=== PATIENT | female | born 1995 | race Caucasian/White ===

== ENCOUNTER 2019-08-10 18:03 | Inpatient (IN) | payer BC, MEDICARE ==
[~2019-08-10] VITALS: Ht 165.1 cm; Wt 68.7 kg
[2019-08-10] MEDS ORDERED: LITH600 PO (18:11)
[2019-08-10] MEDS ORDERED: TRAZ-257 PO (18:11)
[2019-08-10] MEDS ORDERED: BUPR75 PO (18:11)
[2019-08-10] MEDS ORDERED: BUPR-93 PO (18:42)
[2019-08-10 22:24] LABS: BASOPHILS % (AUTO) 0.2 % (0.0-2.0); EOSINOPHILS % (AUTO) 2.6 % (1.0-6.0); HEMATOCRIT 41.3 % (36-46); HEMOGLOBIN 13.6 g/dL (12.0-16.0); LYMPHOCYTES # (AUTO) 2.6 K/uL (1.0-4.8); LYMPHOCYTES % (AUTO) 27.8 % (22.0-44.0); MEAN CORPUSCULAR HGB CONC 32.9 G/dL (31.0-37.0); MEAN CORPUSCULAR VOLUME 91 fL (80-100); MONOCYTES # (AUTO) 0.9 K/uL (0.1-1.0); MONOCYTES % (AUTO) 9.4 % (2.0-9.0); NEUTROPHILS # (AUTO) 5.6 K/uL (1.8-7.7); PLATELET COUNT (AUTO) 243 K/uL (150-450); RED BLOOD CELL COUNT(AUTO) 4.54 MIL/uL (4.00-5.20); RED CELL DISTRIBUTION WIDTH 12.8 % (11.5-14.5)
[2019-08-10] MEDS ORDERED: ZOLPIDEM TARTRATE 10 MG TABLET PO PRN (23:15)
[2019-08-10] MEDS ORDERED: QUEtiapine FUMARATE 100 MG TABLET PO PRN (23:15)
[2019-08-10 23:21] LABS: ANION GAP 6 mmol/L (8-16); CALCIUM, TOTAL 9.8 mg/dL (8.8-10.5); CARBON DIOXIDE 30 mmol/L (22-29); CHLORIDE 100 mmol/L (98-107); CREATININE 0.75 mg/dL (0.60-1.30); GLOMERULAR FILTR. RATE CALC > 60 mL/min (>60); GLUCOSE,RANDOM 74 mg/dL (70-110); POTASSIUM 3.7 mmol/L (3.5-5.1); SODIUM SERUM 136 mmol/L (136-145); UREA NITROGEN, BLOOD 9 mg/dL (7-18)
[2019-08-10 23:21] LABS: AMPHET/METH SCREEN,URINE NEGATIVE (NEGATIVE); BARBITURATE SCREEN, URINE NEGATIVE (NEGATIVE); BENZODIAZEPINES SCREEN,URINE POSITIVE (NEGATIVE); CANNABINOID SCREEN,URINE NEGATIVE (NEGATIVE); COCAINE SCREEN,URINE NEGATIVE (NEGATIVE); METHADONE SCREEN, URINE NEGATIVE (NEGATIVE); OPIATE SCREEN,URINE NEGATIVE (NEGATIVE)
[2019-08-10 23:22] LABS: PHENCYCLIDINE SCREEN,URINE NEGATIVE (NEGATIVE)
[2019-08-10 23:38] LABS: ALANINE AMINOTRANSFERASE 21 U/L (12-78); ALBUMIN 4.8 g/dL (3.4-5.0); ALKALINE PHOSPHATASE 51 U/L (46-116); ASPARTATE AMINOTRANSFERASE 12 U/L (15-37); BILIRUBIN,TOTAL 0.9 mg/dL (0.1-1.0); TOTAL PROTEIN, SERUM 8.5 g/dL (6.4-8.2)
[2019-08-11 00:13] LABS: HCG,QUANTITATIVE < 1 mIU/mL (0-6)
[2019-08-11 02:41] VITALS: BP 134/69
[2019-08-11] MEDS: LORazepam 2 MG TABLET PO PRN ×2 (03:00→17:30)
[2019-08-11 08:32] VITALS: BP 117/71
[2019-08-11 09:11] LABS: CHOL/HDL RATIO 3.2 (3.9-5.7)
[2019-08-11] MEDS ORDERED: MAGNESIUM HYDROXIDE SUSPENSION 30 ML UDCUP PO PRN (10:00)
[2019-08-11] MEDS ORDERED: TUBERCULIN, PURIFIED PROTEIN DERIVATIVE 5 TU/0.1 ML SYRINGE ID ONE (10:00)
[2019-08-11] MEDS ORDERED: LOPERAMIDE HCL 2 MG CAPSULE PO PRN (10:00)
[2019-08-11] MEDS ORDERED: MAG HYDROX/AL HYDROX/SIMETH ES 30 ML SUSPENSION UDCUP PO PRN (10:00)
[2019-08-11] MEDS ORDERED: LURASIDONE HCL 20 MG TABLET PO PRN (10:00)
[2019-08-11] MEDS ORDERED: PROMETHAZINE HCL 25 MG TABLET PO PRN (10:00)
[2019-08-11] MEDS ORDERED: ACETAMINOPHEN 325 MG TABLET PO PRN (10:00)
[2019-08-11] MEDS ORDERED: HydrOXYzine PAMOATE 50 MG CAPSULE PO PRN (10:00)
[2019-08-11] MEDS ORDERED: GuaiFENesin/D-METHORPHAN [SUGAR-FREE] 200-20MG/10 ML SYRUP UDCUP PO PRN (10:00)
[2019-08-11] MEDS ORDERED: LITHIUM CARBONATE 300 MG CAPSULE PO SCH (13:00)
[2019-08-11] MEDS: TRIHEXYPHENIDYL HCL 5 MG TABLET PO SCH (16:35)
[2019-08-11] MEDS: LURASIDONE HCL 40 MG TABLET PO SCH (16:36)
[2019-08-11] MEDS: DOXYCYCLINE HYCLATE 100 MG TABLET PO SCH (16:39)
[2019-08-11 16:43] VITALS: BP 129/79
[2019-08-11] MEDS ORDERED: LURASIDONE HCL 40 MG TABLET PO SCH (17:00)
[2019-08-11] MEDS ORDERED: BUPR-47 PO (17:54)
[2019-08-11] MEDS ORDERED: LURA40TA2 PO (17:54)
[2019-08-11] MEDS ORDERED: TRIH5TAB2 PO (17:54)
[2019-08-11] MEDS: THIAMINE 100 MG TABLET PO SCH (18:05)
[2019-08-12 06:00] VITALS: BP 123/76
[2019-08-12] MEDS: DOXYCYCLINE HYCLATE 100 MG TABLET PO SCH (06:51)
[2019-08-12] MEDS: THIAMINE 100 MG TABLET PO SCH (08:35)
[2019-08-12] MEDS: TRIHEXYPHENIDYL HCL 5 MG TABLET PO SCH ×2 (08:35→12:10)
[2019-08-12 08:38] VITALS: BP 132/73
[2019-08-12] MEDS ORDERED: DOXY-354 PO (08:55)
[2019-08-12] MEDS ORDERED: FOLIC ACID 1 MG TABLET PO SCH (09:00)
[2019-08-12] MEDS ORDERED: BuPROPion HCL XL 150 MG ER TABLET PO SCH (09:00)
[2019-08-12] MEDS ORDERED: MULTIVITAMINS WITH MINERALS, THERAPEUTIC TABLET PO SCH (09:00)
[2019-08-12 09:24] LABS: FREE T4 (FREE THYROXINE) 1.27 ng/dL (0.76-1.46); THYROID STIMULATING HORMONE 3.1 uIU/mL (0.36-3.74)
[2019-08-12] MEDS: LURASIDONE HCL 40 MG TABLET PO SCH (12:10)
== END 2019-08-12 12:19 | disposition home or self-care (01) | DRG 885 ==
LOC: EMS 18:04 → B3A 08-11 01:11
PROVIDERS: ADMIT Psychiatry & Neurology Psychiatry; ATTEND Psychiatry & Neurology Psychiatry
DX: F25.0 Schizoaffective disorder, bipolar type (principal); R45.851 Suicidal ideations; K50.90 Crohn's disease, unspecified, without complications; D64.9 Anemia, unspecified; Z79.899 Other long term (current) drug therapy; Z91.19 Patient's noncompliance with other medical treatment and regimen
CPT/HCPCS: 84439; 84443; 86592; G0480

== ENCOUNTER 2022-05-03 10:48 | Emergency (ER) | payer BC ==
[~2022-05-03] VITALS: Ht 165.1 cm; Wt 54.5 kg
[~2022-05-03 10:48] MED LIST: BUPR-49 PO; DOXY-354 PO; LURA40TA2 PO; TRIH5TAB3 PO
[2022-05-03] MEDS ORDERED: TOPI100T37 PO (11:01)
[2022-05-03] MEDS ORDERED: METH20CP PO (11:01)
[2022-05-03] MEDS ORDERED: ASEN10TA11 SL (11:01)
[2022-05-03] MEDS ORDERED: NORE0.3513 PO (11:01)
[2022-05-03] MEDS ORDERED: TRAZ300T2 PO (11:01)
[2022-05-03 11:11] VITALS: BP 127/72
== END 2022-05-03 11:43 | disposition left against medical advice (07) ==
LOC: EMS 10:52
DX: M54.50 Low back pain, unspecified (principal); Z53.21 Procedure and treatment not carried out due to patient leaving prior to being seen by health care provider